=== PATIENT | female | born 2000 | race Two or more races ===

== ENCOUNTER 2024-03-18 17:01 | Emergency (ER) | payer OTHER, SELFPAY ==
[2024-03-18 17:08] VITALS: BP 101/72; PULSE 72; RESP 16; TEMP 36.7; O2SAT 100
[2024-03-18 17:24] LABS: EDUAAPPEAR Clear; EDUABILI Negative; EDUABLOOD 2+; EDUACOLOR1 Light/Pale; EDUAGLUCOSE Negative; EDUAKETONE Negative; EDUALEUKO Negative; EDUANITRATE Negative; EDUAPH 6.5; EDUAPROTEIN Negative; EDUASPGRAVITY 1.005; EDUAUROBILI 0.2
--- NOTE | 2024-03-18 17:34 | ED.FEMALEGU ---
HPI - Female Genitourinary General Chief complaint: Urogenital-Female Stated complaint: UTI SYMTPOMS Time Seen by Provider: 03/18/24 17:23 Source: patient and RN notes reviewed Mode of arrival: ambulatory Limitations: no limitations History of Present Illness HPI Narrative: Patient presents today the reporting dysuria, frequency, subjective fever, headache. Symptoms began 4 days ago. She started a course of ofloxacin/Ornidazole that was given to her before she left [facility] to come to school in the by her PCP. She took the medication for the prescribed 3 days and states her symptoms improved, but when she was finished with the medication her symptoms returned yesterday. Denies abdominal pain, back pain. She is currently menstruating. No [id number] medication for symptoms prior to arrival. Related Data Home Medications Medication Instructions Recorded Confirmed ofloxacin 300 mg tablet 300 mg PO BID 03/18/24 03/18/24 Allergies Allergy/AdvReac Type Severity Reaction Status Date / Time No Known Allergies Allergy Verified 03/18/24 17:21 Review of Systems Review of Systems: CONSTITUTIONAL: Denies body aches,chills, or sweats.+ subjective fever EYES: Denies visual changes, redness, or discharge. ENT: Denies rhinorrhea, congestion, sore throat, or otalgia. CARDIOVASCULAR: Denies chest pain, palpitations, or edema. RESPIRATORY: Denies cough or dyspnea. GASTROINTESTINAL: Denies abdominal pain, nausea, vomiting, or diarrhea. GENITOURINARY: + dysuria, frequency SKIN: Denies rash, itching, or wounds. MUSCULOSKELETAL: Denies back pain, joint pain, or myalgia. NEUROLOGIC: Denies numbness, tingling, or weakness.+ headache PSYCH: Denies depression or anxiety. PMFSH Comments At time of signature, I have reviewed and agree with nursing past medical, surgical, social and family history unless otherwise noted. Please see nursing chart for further information. There is no relevant family history pertinent to the presenting complaint Exam Narrative: GENERAL: Well-appearing, well-nourished, and in no acute distress. HEAD: Normocephalic, atraumatic. EYES: EOMI. No redness or drainage. Conjunctivae normal. ENT: Mucous membranes pink and moist. NECK: Normal AROM. CHEST: No respiratory distress. Clear to auscultation. HEART: Regular rate and rhythm. No murmur appreciated. Normal peripheral pulses. ABDOMEN: Soft, nontender, nondistended, normal active bowel sounds. EXTREMITIES: Normal range of motion. No edema. SKIN: Warm, dry, no rash. Capillary refill normal. NEURO: No focal deficits. Alert and oriented x3. Gait steady. PSYCH: Normal affect. No signs of depression or anxiety. Course Course Level of Care: Express Care Visit Vital Signs Vital signs: Vital Signs Temperature 98.1 F 03/18/24 17:08 Pulse Rate 72 03/18/24 17:08 Respiratory Rate 16 03/18/24 17:08 Blood Pressure 101/72 03/18/24 17:08 Pulse Oximetry 100 03/18/24 17:08 Temperature 98.1 F 03/18/24 17:08 Pulse Rate 72 03/18/24 17:08 Respiratory Rate 16 03/18/24 17:08 Blood Pressure 101/72 03/18/24 17:08 Pulse Oximetry 100 03/18/24 17:08 Reviewed MDM - Female Genitourinary MDM Narrative Medical decision making narrative: Urinalysis is negative except 2+ blood, which is likely due to menstruation. UAs likely skewed due to recent antibiotic use. Will culture urine and start patient on Keflex due to symptoms. Anticipatory guidance given Differential Diagnosis Differential diagnosis: Likely urinary tract infection, vaginitis and cystitis Lab Data Attestation: I reviewed the patient's lab results. Labs: Lab Results 03/18/24 Range/Units 17:22 POC Urine Color Light/pale POC Urine Clarity Clear POC Urine pH 6.5 POC Ur Specif [place] 1.005 POC Urine Protein Negative POC Ur Glucose (UA) Negative POC Urine Ketones Negative POC Urine Blood 2+ POC Urine Nitrite Negative
== END 2024-03-18 17:40 | disposition home or self-care (01) ==
PROVIDERS: Emergency Provider Nurse Practitioner
DX: N39.0 Urinary tract infection, site not specified (principal)
CPT/HCPCS: 81003; 87086; 99203; G0463

== ENCOUNTER 2024-03-21 16:36 | Emergency (ER) | payer OTHER, SELFPAY ==
--- NOTE | 2024-03-21 16:42 | ED.FEMALEGU ---
HPI - Female Genitourinary General Chief complaint: Urogenital-Female Stated complaint: Uti Symptoms Time Seen by Provider: 03/21/24 16:49 Source: patient, RN notes reviewed and old records reviewed Mode of arrival: ambulatory Limitations: no limitations History of Present Illness HPI Narrative: Olivia is a 23-year-old female patient presenting to the clinic today with complaints of urinary frequency. She reports she was seen on Thursday of last week and was diagnosed with the UTI and given prescription for Keflex. States that offer symptoms have resolved other than the urinary frequency. States that she finished her menstrual period yesterday. Denies any concern for sexually transmitted infections and denies being sexually active. Is concerned as she is taking the antibiotic and she still having urinary frequency. She denies any fevers, chills, abdominal pain, or back pain. Urine culture reviewed from Thursday and is negative for any of 80 bacteria. Related Data Home Medications Medication Instructions Recorded Confirmed ofloxacin 300 mg tablet 300 mg PO BID 03/18/24 03/18/24 Allergies Allergy/AdvReac Type Severity Reaction Status Date / Time No Known Allergies Allergy Verified 03/18/24 17:21 Review of Systems Review of Systems: Pertinent positives per HPI. Patient denies any fever, chills, rash, headache, visual changes, dizziness, cough, runny nose, sore throat, shortness of breath, chest pain, palpitations, nausea, vomiting, diarrhea, constipation, abdominal pain. PMFSH Comments At the time of my signature, I reviewed and agree with the nursing past medical, surgical, social, and family history. There is no relevant family history pertinent to the patient complaint. Exam Narrative: General: Well-developed, well nourished, in no apparent distress. Head: Normocephalic, atraumatic. Cardio: Regular rate and rhythm, s1 and s2 normal, no murmur appreciated. Resp: Clear to auscultation bilaterally, no rhonchi, rales, wheezing or rubs. Abdomen: Soft, pliable, bowel sounds present in all quadrants, non-tender to palpation, no organomegly, no CVAT tenderness. : Deferred Course Course Emergency Course: Portions of this record may have been created with voice recognition software. Level of Care: Express Care Visit Vital Signs Vital signs: Vital Signs Temperature 36.5 C 03/21/24 16:47 Pulse Rate 76 03/21/24 16:47 Respiratory Rate 15 03/21/24 16:47 Blood Pressure 103/63 03/21/24 16:47 Pulse Oximetry 100 03/21/24 16:47 Oxygen Delivery Room Air 03/21/24 16:47 Temperature 36.5 C 03/21/24 16:47 Pulse Rate 76 03/21/24 16:47 Respiratory Rate 15 03/21/24 16:47 Blood Pressure 103/63 03/21/24 16:47 Pulse Oximetry 100 03/21/24 16:47 Oxygen Delivery Room Air 03/21/24 16:47 Vital signs reviewed MDM - Female Genitourinary MDM Narrative Medical decision making narrative: At the time of visit patient is resting comfortably on the exam table. Patient appears to be nontoxic. Labs: Urinalysis shows trace of 1+ ketone and trace of blood. Random blood sugar was 77 Plan: I suspect patient has urinary frequency. Culture was negative for any invading bacteria. Recommend patient discontinue the antibiotic. Blood sugar was 77 in the clinic today. Supportive measures were discussed with the patient and they voiced understanding discharge instructions and agrees to treatment plan. Return precautions reviewed Differential Diagnosis Differential diagnosis: Likely urinary tract infection and cystitis Lab Data Labs: Lab Results 03/21/24 03/21/24 Range/Units 16:54 16:59 POC Capillary Glucose 77 (65-105) mg/dl POC Urine Color Yellow POC Urine Clarity Clear POC Urine pH 6.5 POC Ur Specif [place] 1.015 POC Urine Protein Negative POC Ur Glucose (UA) Negative POC Urine Ketones 1+ POC Urine Blood Trace POC Urine Nitrite N
[2024-03-21 16:47] VITALS: BP 103/63; PULSE 76; RESP 15; TEMP 36.5; O2SAT 100
[2024-03-21 16:56] LABS: EDUAAPPEAR Clear; EDUABILI Negative; EDUABLOOD Trace; EDUACOLOR1 Yellow; EDUAGLUCOSE Negative; EDUAKETONE 1+; EDUALEUKO Negative; EDUANITRATE Negative; EDUAPH 6.5; EDUAPROTEIN Negative; EDUASPGRAVITY 1.015; EDUAUROBILI 0.2
[2024-03-21 17:02] LABS: Glucose Point of Care 77 mg/dl (65-105)
== END 2024-03-21 17:07 | disposition home or self-care (01) ==
PROVIDERS: Emergency Provider Nurse Practitioner Family
DX: R35.0 Frequency of micturition (principal)
CPT/HCPCS: 81003; 82948; 99213; G0463